=== PATIENT | female | born 1955 | race Caucasian/White ===

== ENCOUNTER 2018-03-06 19:45 | Emergency (ER) | payer OTHER ==
[~2018-03-06] VITALS: Ht 175.3 cm; Wt 83.9 kg
[~2018-03-06 19:45] MED LIST: ADULT LOW DOSE81 MG PO; AMARYL2 MG PO; AMOXICILLIN 50500 MG PO; APAP500; ASPIR 8181 MG PO; ATORVASTATIN CA40 MG PO; AVELOX400 MG PO; BABY ASA; BENTYL 10 MG CA10 M1 PO; BETA BLOCKER; BISOPROLOL FUMAR5 MG PO; BRILINTA90 MG PO; BYSTOLIC10 MG PO; CIPROFLOXACIN500 M1 PO; CLEOCIN HCL300 MG PO; COLESTIPOL HCL1 G1 PO; CREON DR 36,001 EACH PO; CRESTOR20 MG PO; DOXYCYCLINE 10100 M1 PO; DOXYCYCLINE 10100 MG PO; ENALAPRIL MALEA10 M1 PO; FELODIPINE PO; FLAGYL500 MG PO; HUMALOG100 UNIT/1 SQ; IBUPROFEN 600600 M1 PO; ISORDIL40 MG PO; KEFLEX500 MG PO; LANTUS SC; LEVOTHYROXIN0.125 M1 PO; LEVOXYL175 MCG PO; LORTAB 5 MG/5001 TA1 PO; LORTAB 5 MG/5001 TAB PO; MACROBID 100 M100 M1 PO; MEDROL DOSPAK21 TAB PO; MEDROLDOSEPACK PO; MOBIC15 MG PO; NAPROSYN500 MG PO; NEURONTIN 300300 M1 PO; NORCO 5-325 TA1 EACH PO; OMEPRAZOLE40 MG PO; PERCOCET 7.5-31 EACH PO; PHENERGAN 25 MG25 M1 PO; POTASSIUM20 PO; PREDNISONE 20 M20 MG PO; TOBRAMYCIN SULFA5 ML OP; TOBREX5 ML OP; TOPROL XL25 MG PO; TRAMADOL 50 MG50 MG PO; ULTRAM 50MG TAB50 MG PO; VALIUM5 MG PO; WELLBUTRIN SR150 MG PO; ZANTAC 150MG T150 MG PO; ZANTAC 7575 MG PO; ZPAK PO
[2018-03-06] MEDS ORDERED: HYDROCODONE-AP1 EAC6 PO (22:30)
[2018-03-06 23:00] VITALS: BP 153/72
== END 2018-03-06 23:05 | disposition home or self-care (01) ==
LOC: ER 19:45
DX: M77.9 Enthesopathy, unspecified (principal); M70.841 Other soft tissue disorders related to use, overuse and pressure, right hand; S60.011A Contusion of right thumb without damage to nail, initial encounter; F17.210 Nicotine dependence, cigarettes, uncomplicated; E11.40 Type 2 diabetes mellitus with diabetic neuropathy, unspecified; Z91.040 Latex allergy status; Z88.5 Allergy status to narcotic agent; Z88.2 Allergy status to sulfonamides; X58.XXXA Exposure to other specified factors, initial encounter; Y93.89 Activity, other specified; Y92.89 Other specified places as the place of occurrence of the external cause; Y99.8 Other external cause status

== ENCOUNTER 2018-04-16 21:28 | Emergency (ER) | payer OTHER ==
[~2018-04-16] VITALS: Ht 172.7 cm; Wt 83.9 kg
[~2018-04-16 21:28] MED LIST changes: +HYDROCODONE-AP1 EAC6 PO
[2018-04-16 21:33] VITALS: BP 182/89
[2018-04-16] MEDS ORDERED: KEFLEX500 M1 PO (21:38)
== END 2018-04-16 21:59 | disposition home or self-care (01) ==
LOC: ER 21:28
DX: S90.922A Unspecified superficial injury of left foot, initial encounter (principal); X58.XXXA Exposure to other specified factors, initial encounter; Y93.89 Activity, other specified; Y92.89 Other specified places as the place of occurrence of the external cause; Y99.8 Other external cause status; E11.9 Type 2 diabetes mellitus without complications; Z95.811 Presence of heart assist device; Z90.49 Acquired absence of other specified parts of digestive tract; F17.210 Nicotine dependence, cigarettes, uncomplicated; Z88.2 Allergy status to sulfonamides; Z88.5 Allergy status to narcotic agent

== ENCOUNTER 2018-11-22 16:18 | Emergency (ER) | payer OTHER ==
[~2018-11-22] VITALS: Ht 175.3 cm; Wt 87.1 kg
[~2018-11-22 16:18] MED LIST changes: +KEFLEX500 M1 PO
[2018-11-22 16:22] VITALS: BP 157/55
[2018-11-22] MEDS ORDERED: KEFLEX500 M1 PO (17:26)
== END 2018-11-22 17:36 | disposition home or self-care (01) ==
LOC: ER 16:18
DX: S91.312A Laceration without foreign body, left foot, initial encounter (principal); L57.0 Actinic keratosis; E11.40 Type 2 diabetes mellitus with diabetic neuropathy, unspecified; Z90.49 Acquired absence of other specified parts of digestive tract; Z95.5 Presence of coronary angioplasty implant and graft; F17.210 Nicotine dependence, cigarettes, uncomplicated; Z88.2 Allergy status to sulfonamides; Z88.5 Allergy status to narcotic agent; Z91.040 Latex allergy status

== ENCOUNTER 2018-12-21 18:58 | Emergency (ER) | payer OTHER ==
[~2018-12-21] VITALS: Ht 175.3 cm; Wt 87.1 kg
[2018-12-21 20:38] VITALS: BP 176/50
== END 2018-12-21 20:39 | disposition home or self-care (01) ==
LOC: ER 18:58
DX: S06.0X9A Concussion with loss of consciousness of unspecified duration, initial encounter (principal); E11.40 Type 2 diabetes mellitus with diabetic neuropathy, unspecified; K58.9 Irritable bowel syndrome, unspecified; F17.210 Nicotine dependence, cigarettes, uncomplicated; Z95.5 Presence of coronary angioplasty implant and graft; Z98.890 Other specified postprocedural states; Z91.040 Latex allergy status; Z88.6 Allergy status to analgesic agent; Z88.2 Allergy status to sulfonamides; W01.0XXA Fall on same level from slipping, tripping and stumbling without subsequent striking against object, initial encounter; Y93.89 Activity, other specified; Y92.89 Other specified places as the place of occurrence of the external cause; Y99.8 Other external cause status

== ENCOUNTER 2019-03-15 19:59 | Emergency (ER) | payer OTHER ==
[~2019-03-15] VITALS: Ht 175.3 cm; Wt 87.1 kg
[2019-03-15] MEDS ORDERED: VALIUM5 MG PO (22:24)
[2019-03-15] MEDS ORDERED: MOBIC15 MG PO (22:24)
[2019-03-15] MEDS ORDERED: NORCO 5-325 TA1 EACH PO (22:24)
[2019-03-15 22:27] VITALS: BP 159/61
== END 2019-03-15 22:35 | disposition home or self-care (01) ==
LOC: ER 19:59
DX: S16.1XXA Strain of muscle, fascia and tendon at neck level, initial encounter (principal); E11.40 Type 2 diabetes mellitus with diabetic neuropathy, unspecified; Z90.49 Acquired absence of other specified parts of digestive tract; Z95.5 Presence of coronary angioplasty implant and graft; F17.210 Nicotine dependence, cigarettes, uncomplicated; Z88.2 Allergy status to sulfonamides; Z88.5 Allergy status to narcotic agent; Z91.040 Latex allergy status; X58.XXXA Exposure to other specified factors, initial encounter; Y93.89 Activity, other specified; Y92.89 Other specified places as the place of occurrence of the external cause; Y99.8 Other external cause status

== ENCOUNTER 2019-05-24 16:21 | Emergency (ER) | payer OTHER ==
[~2019-05-24] VITALS: Ht 175.3 cm; Wt 84.8 kg
[2019-05-24 18:14] LABS: CALCIUM 9.8 mg/dL (8.5-10.1); CREATININE 1.3 mg/dL (0.6-1.0); MAGNESIUM 1.7 mg/dL (1.8-2.4); POTASSIUM 4.9 mmol/L (3.5-5.1)
[2019-05-24 19:06] VITALS: BP 155/76
== END 2019-05-24 19:06 | disposition home or self-care (01) ==
LOC: ER 16:21
PROVIDERS: Physician Assistant
DX: M62.838 Other muscle spasm (principal); M79.672 Pain in left foot; E11.40 Type 2 diabetes mellitus with diabetic neuropathy, unspecified; K58.9 Irritable bowel syndrome, unspecified; F17.210 Nicotine dependence, cigarettes, uncomplicated; Z91.040 Latex allergy status; Z88.5 Allergy status to narcotic agent; Z88.2 Allergy status to sulfonamides; Z95.5 Presence of coronary angioplasty implant and graft